=== PATIENT | female | born 1955 | race Caucasian/White ===

== ENCOUNTER 2023-09-08 11:59 | Outpatient (RCR) | payer OTHER, SELFPAY | END 2023-09-08 23:59 | disposition home or self-care (01) | LOC: ROT 11:59 | PROVIDERS: ATTENDING PHYSICIAN Orthopaedic Surgery Hand Surgery; FAMILY PHYSICIAN Nurse Practitioner Adult Health | DX: Z47.89 Encounter for other orthopedic aftercare (principal); M65.312 Trigger thumb, left thumb; Z73.6 Limitation of activities due to disability | CPT/HCPCS: 97760 ==

== ENCOUNTER 2024-09-23 14:52 | Emergency (ER) | payer OTHER, SELFPAY ==
[2024-09-23 14:54] VITALS: BP 133/72
[2024-09-23 15:23] LABS: % Basophils 0.9 % (0-2); % Eosinophils 0.7 % (0-6); % Immature Granulocytes 0.4 % (0-0.5); % Lymphocytes 33.5 % (20.5-51.1); % Monocytes 6.7 % (1.7-9.3); % Neutrophils 57.8 % (42.2-75.2); Absolute Basophils 0.1 10^3/uL (0-0.2); Absolute Eosinophils 0.1 10^3/uL (0-0.7); Absolute Lymphocytes 2.3 10^3/uL (1.2-3.4); Absolute Monocytes 0.5 10^3/uL (0.1-0.6); Hematocrit 42.4 % (37.0-47.0); Hemoglobin 14.3 g/dL (12.0-16.0); Mean Corp Hgb Conc. 33.7 g/dL (33.0-37.0); Mean Corpuscular Hgb 29.5 pg (27.0-31.0); Mean Corpuscular Volume 87.4 fL (81.0-99.0); Mean Platelet Volume 9.3 fL (7.4-10.4); Nucleated Red Blood Cells % 0 %; Platelet Count 271 10^3/uL (130-400); Red Blood Cell Count 4.85 10^6/uL (4.20-5.40); Red Cell Dist. Width 13.1 % (11.5-14.5)
[2024-09-23 15:39] LABS: ALT (SGPT) 32 U/L (0-35); AST (SGOT) 29 U/L (14-36); Albumin 4.4 g/dl (3.5-5.0); Alkaline Phosphatase 83 U/L (38-126); Blood Urea Nitrogen 16 mg/dl (7-17); Calcium 9.3 mg/dl (8.4-10.2); Carbon Dioxide 27 mmol/L (22-30); Chloride 101 mmol/L (98-107); Glucose 112 mg/dl (70-99); Potassium 4.2 mmol/L (3.5-5.1); Sodium 138 mmol/L (135-145); Total Bilirubin 0.6 mg/dl (0.2-1.3); Total Protein 7.1 g/dl (6.3-8.2); eGFR > 60.00
[2024-09-23 16:45] LABS: Urine Albumin Negative (Neg - Trace); Urine Bilirubin Negative (Negative); Urine Character Clear (Clear); Urine Color Yellow; Urine Glucose Negative (Negative); Urine Ketone Negative (Negative); Urine Leukocyte Negative (Negative); Urine Nitrite Negative (Negative); Urine Occult Blood Negative (Negative); Urine Specific Gravity 1.015 (<1.030); Urine Urobilinogen Negative (Neg - 1+)
--- NOTE | 2024-09-23 17:26 | ED.GENMED ---
History of Present Illness
General
Chief Complaint: Dizziness
Source: patient
Exam Limitations: none
Time Seen by Provider: 09/23/24 16:35
Nursing documentation reviewed up to this point in time: agreed with
History of Present Illness
History of Present Illness:
Patient to ED wi complaint of vertigo. States she has a prior history and can feel when an episode is about to happen. Today she was out to lunch with friends and did not have her meclazine or zofran with her. Took meds when she got home and
then came to ED. Is feeling better now. Denies fever/chills, abdominal pain. Brought to ED by friend for eval.
Past History
Past History
ED Past Medical History: Cancer (breast) and Other (arthritis, MVP, bilateral mastectomy for breast cancer in 2010 with adjuvant chemotherapy with Adriamycin)
ED Past Surgical History: Other (b/l mastectomy, implant surgeries.)
Social History
Tobacco: Non-smoker
Alcohol: None
Personal:
Living: with family
Family History
Family History: Adopted
Review of Systems
Review of Systems
Allergies reviewed?: Yes
All Other Systems: ROS reviewed and negative except as documented in HPI and ROS
Constitutional: Reports no symptoms
EENT: Reports no symptoms
Respiratory: Reports no symptoms
Cardiac: Reports no symptoms
ABD/GI: Reports nausea and vomiting
: Reports no symptoms
Musculoskeletal: Reports no symptoms
Skin: Reports no symptoms
Neurological: Reports dizzy
Psychiatric: Reports no symptoms
Phy Exam
General Physical Exam
General Presentation: well appearing and no apparent distress
General age: appears stated age
General Skin: warm and dry
General Habitus: normal
Eye Exam
Eye Exam: PERRL, EOMI and conjunctiva normal
Cardiovascular Exam
Cardiovascular Exam: regular rate/rhythm
Gastrointestinal Exam
Gastrointestinal Exam: normal bowel sounds, non tender, soft, no organomegaly and non distended
Neurological Exam
Neurological Exam: alert, oriented x3, CN II-XII intact and no motor deficits
Musculoskeletal Exam
Musculoskeletal Exam: full ROM
Skin Exam
Skin Exam: normal color, warm/dry and no rash
Psychiatric Exam
Psychiatric Exam: normal mood/affect
Course
Orders/Labs/Results
Orders:
Orders
09/23/24 14:57
Electrocardiogram (*1) Urgent
Reason for Study: Vertigo / Dizzy
EKG- Treatment ONCE
09/23/24 15:10
CMP [Comprehensive Metabolic Panel] Urgent
Complete Blood Count/With Diff Urgent
09/23/24 16:34
Urinalysis Reflex To Culture Urgent
Date Specimen was Collected: 09/23/24
Time Specimen was Collected: 16:31
Abnormal Lab Results
09/23/24
15:10
Glucose 112 H mg/dl
(70-99)
09/23/24 15:10
09/23/24 15:10
Vital Signs
Initial and Last Documented VS:
Initial Vital Signs
Temp Pulse Resp BP Pulse Ox
97.4 F 72 16 133/72 98
09/23/24 14:54 09/23/24 14:54 09/23/24 14:54 09/23/24 14:54 09/23/24 14:54
Last Documented Vital Signs
Temp Pulse Resp BP Pulse Ox
97.8 F 58 16 119/62 100
09/23/24 18:21 09/23/24 18:21 09/23/24 14:54 09/23/24 18:21 09/23/24 18:21
*Critical Care Note
Total Time (30-74mins, 75-104mins- exclusive of procedures): Not Applicable
Update Note
Update Note:
Symptoms resolving. No further vomiting in ED. Tolerating ice chips. Will discharge home, close follow up with PCP. Given instructions on s/s to return to ED and she is agreeable to plan.
ED Attending Note
-
Portions of this chart may have been created with voice recognition software.� Occasional wrong word or��sound alike� substitutions may have occurred due to the inherent limitations of voice recognition software.
Discharge Plan
Departure
Patient Disposition: Home (Routine Discharge)
Date of Disposition: 09/23/24
Time of Disposition: 18:14
Patient with high blood pressure during this ER visit?: No
Condition: Good
Covid-19: Not Applicable
Discharge Problem:
Vertigo
Instructions: Vertigo (a Type of Dizziness) (DC)
Prescriptions:
No Action
acetaminophen 325 MG tablet
325 - 650 mg PO Q4HPRN PRN (Reason: pain)
cholecalciferol (vitamin D3) [Vitamin D3] 2,000 UNIT capsule
2,000 unit PO DAILY
meclizine 25 MG tablet
25 mg PO Q8HPRN PRN (Reason: nausea or vertigo) Qty: 20 0RF
ondansetron 4 MG tablet,disintegrating
4 mg PO TIDPRN PRN (Reason: nausea/vomiting) Qty: 10 0RF
diazepam 5 MG tablet
5 mg PO TIDPRN PRN (Reason: vertigo) Qty: 20 0RF
famotidine [Pepcid] 20 mg Tablet
20 mg PO DAILY
ascorbic acid (vitamin C) [Vitamin C] 500 mg Tablet
500 mg PO DAILY
mecobalamin (vitamin B12) 1,000 mcg Tablet,Chewable
1,000 mcg PO DAILY
ibuprofen 200 mg Capsule
200 - 400 mg PO Q6H PRN (Reason: migraine)
lidocaine 1 PATCH adhesive patch,medicated
1 patch topical BIDPRN PRN (Reason: sore muscles)
Rx Instructions:
ON FOR 12 HOURS, OFF FOR 12 HOURS
Knee and Lower back
Referrals:
Bill Wright CRNP [Family Provider] - Follow up in 2-3 days
Interventions
Interventions:
*Risk Screen - Suicide Last Done: 09/23/24 14:54
*General Assessment Last Done: 09/23/24 14:54
*Neglect/Abuse Screening Last Done: 09/23/24 17:05
*ED COVID-19 Vaccine History Last Done: 09/23/24 14:54
*Nursing Disposition Last Done: 09/23/24 18:44
ED- Neurological Assessment Last Done: 09/23/24 17:05
ED- Cardiac Assessment Last Done: 09/23/24 17:05
ED Swallowing Screen Last Done: 09/23/24 17:05
Discharge Date and Time
Discharge Date/Time: 09/23/24 18:45
Print Language: GREEK
[2024-09-23 18:21] VITALS: BP 119/62
== END 2024-09-23 18:45 | disposition home or self-care (01) ==
LOC: EMR 14:52
PROVIDERS: EMERGENCY PHYSICIAN Emergency Medicine; FAMILY PHYSICIAN Nurse Practitioner Adult Health
DX: R42 Dizziness and giddiness (principal)
CPT/HCPCS: 99283; 80053; 81003; 85025; 93005